=== PATIENT | male | born 1935 | race Caucasian/White ===

== ENCOUNTER 2016-11-25 07:40 | Inpatient (IN) | payer MEDICARE ==
[~2016-11-25] VITALS: Ht 177.8 cm; Wt 70.3 kg
[~2016-11-25 07:40] MED LIST: ALBU1.25 NEB; CALC300T5 PO; CEFTRIAXONE 1GM IVPB FOR OMNI 50 ML IV PRN; CHOL10003 PO; FENTANYL PF 100 MCG/2 ML VIAL. IV PRN; FINA5TAB PO; FLUT1DIS IH; GUAI600T38 PO; HYDR-2762 PO; IV RINGERS,LACTATED 1000ML 1,000 ML IV SCH; LIDOCAINE 1% 1 ML SYRINGE. ID PRN; LOVA10TA PO; OMEG1CAP50 PO; OMEG1CAP6 PO; ONDANSETRON PF 4 MG/2 ML VIAL. IV PRN; PRAV40TA2 PO; PROAIR HFA8.5 GM INH; PROCHLORPERAZINE 10 MG/2 ML VIAL. IV PRN; RANI150T6 PO; SILO8CAP PO; VALIUM10 MG PO
[2016-11-25 08:38] LABS: BILIRUBIN,URINE NEGATIVE (NEG); GLUCOSE,URINE NEGATIVE (NEG); NITRITE,URINE NEGATIVE (NEG); PH,URINE 6.5; PROTEIN,URINE 30 mg/dL (NEG-TRACE); UROBILINOGEN,URINE 0.2 mg/dL (0.2 mg/dL)
[2016-11-25 08:43] LABS: BASO # 0.1 x10^3/uL (0.0-0.2); BASO % 1 % (0-3); EOS % 3 % (0-3); HEMATOCRIT 34.4 % (39.0-53.0); HEMOGLOBIN 11.1 g/dL (13.0-17.5); LYMPH # 1.2 x10^3/uL (1.0-4.8); LYMPH % 18 % (24-48); MEAN CORPUSCULAR HEMOGLOBIN 30 pg (25-35); MEAN CORPUSCULAR HGB CONC 32 g/dL (31-37); MEAN CORPUSCULAR VOLUME 92 fL (79-100); MONO % 13 % (0-9); NEUT % 66 % (31-73); PLATELET COUNT 175 x10^3/uL (140-400); RED BLOOD COUNT 3.73 x10^6/uL (4.30-5.70); WHITE BLOOD COUNT 6.9 x10^3/uL (4.0-11.0)
[2016-11-25 08:50] LABS: RBC,URINE 20-40 /HPF (0-2)
[2016-11-25 08:51] LABS: BACTERIA,URINE FEW /HPF (0-FEW); SQUAMOUS EPITHELIAL CELL,UR OCC /LPF
[2016-11-25] MEDS ORDERED: PROPOFOL 20 ML IV ONE (08:52)
[2016-11-25] MEDS ORDERED: LIDOCAINE 2% 100 MG/5 ML DISP.SYRIN. ONE (08:52)
[2016-11-25] MEDS ORDERED: ONDANSETRON PF 4 MG/2 ML VIAL. ONE (08:52)
[2016-11-25] MEDS ORDERED: FENTANYL PF 100 MCG/2 ML VIAL. ONE (08:53)
[2016-11-25 08:58] LABS: CALCIUM 8.9 mg/dL (8.5-10.1); CREATININE 1.9 mg/dL (0.7-1.3); GFR 34.5; POTASSIUM 3.9 mmol/L (3.5-5.1)
[2016-11-25 08:59] LABS: INR 1.1 (0.8-1.1); PROTHROMBIN TIME PATIENT 13.8 SEC (11.7-14.0)
[2016-11-25] MEDS ORDERED: EPHEDRINE PF IN SALINE 50 MG/5 ML DISP.SYRIN. IV ONE (09:10)
[2016-11-25] MEDS ORDERED: GLYCOPYRROLATE 1 MG/5 ML VIAL. ONE (09:39)
[2016-11-25] MEDS ORDERED: SEVOFLURANE 31 TO 60 MINUTES. IH ONE (09:54)
[2016-11-25] MEDS ORDERED: MAGNESIUM HYDROXIDE 2,400 MG/30 ML ORAL.SUSP. PO PRN (10:45)
[2016-11-25] MEDS ORDERED: ACETAMINOPHEN 325 MG TABLET. PO PRN (10:45)
[2016-11-25] MEDS ORDERED: NALOXONE 0.4 MG/ML VIAL. IV PRN (10:45)
[2016-11-25] MEDS ORDERED: MAG HYDROX/ALUMINUM HYD/SIMETH 30 ML ORAL.SUSP PO PRN (10:45)
[2016-11-25] MEDS ORDERED: ONDANSETRON PF 4 MG/2 ML VIAL. IV PRN (10:45)
[2016-11-25] MEDS ORDERED: 0.9 % SODIUM CHLORIDE 10 ML DISP.SYRIN. IV PRN (10:45)
[2016-11-25] MEDS ORDERED: DIPHENHYDRAMINE 50 MG/ML VIAL IV PRN (10:45)
[2016-11-25] MEDS ORDERED: NON FORMULARY ITEM (Albuterol Sulfate (Proair Hfa Inhaler) 1 PUFF) INH PRN (11:00)
[2016-11-25] MEDS: FINASTERIDE 5 MG TABLET PO SCH (11:42)
[2016-11-25 12:30] VITALS: BP 133/66
[2016-11-25] MEDS ORDERED: ALBUTEROL SULFATE 2.5 MG/3 ML NEBU. NEB PRN (12:45)
--- NOTE | 2016-11-25 13:04 | OP ---
DATE OF SURGERY: 11/25/2016 PREOPERATIVE DIAGNOSES: Bladder cancer, bilateral hydronephrosis. POSTOPERATIVE DIAGNOSES: Bladder cancer, bilateral hydronephrosis. PROCEDURE: Cystoscopy, multiple bladder biopsies, attempted retrograde pyelograms, fulguration of medium bladder tumor. SURGEON: Rand Malagon D.O. ANESTHESIA: General. ESTIMATED BLOOD LOSS: Less than 100 mL. DRAINS: A 22-Burundian 3-way Calvo catheter to continuous bladder irrigation. INDICATIONS AND JUDGMENT: This is a 80-year-old male that recently was found to have bladder cancer involving the anterior bladder wall near the symphysis pubis. It is high grade that felt to be noninvasive. Therefore, he was placed on BCG bladder treatments. He had been doing very well, but a recent CT scan revealed bilateral hydronephrosis and a very thickened bladder wall. Therefore, it was felt that he should undergo cystoscopy, bladder biopsies and placed bilateral ureteral stents since this bilateral hydronephrosis was a new finding. This was explained to the patient, he appeared to understand and was agreeable. OPERATION PROCEDURE: The patient was preloaded with IV antibiotics. He was taken to the operating room and placed on the operating room table in supine position, given a general anesthetic and then placed in a dorsolithotomy position using Anthony stirrups, since we do not have a cystoscopy table. A C-arm was moved into position. Rigid cystoscopy was performed. The urethra was normal course and caliber. The patient has a 25 g prostate with visual obstruction. The scope was advanced into the bladder. The bladder was carefully examined with a 30 degree and 70 degree lens. The bladder looked much different today. He now had significant bladder tumor involvement of the trigone and the floor of the bladder and I was not able to identify the ureteral orifices on either side. There appeared to be involved in the bladder tumor involving the trigone and the floor of the bladder. I then decided to take some bladder biopsies and several bladder biopsies were taken of the tumor in the region of the trigone and one biopsy on the dome of the bladder. I then utilized the resectoscope and a 24-Burundian resectoscope sheath with the rollerball and I fulgurated the bladder tumor in the region of the trigone. I was careful not to fulgurate in the area ____ that the ureteral orifices should be. Hemostasis was obtained. Therefore, the instruments were removed. A well-lubricated 22-Bur[place]ian 3-way Calvo catheter was inserted into the bladder and this was connected to continuous bladder irrigation using normal saline. The patient tolerated the procedure well and was sent to recovery room in satisfactory condition. I am going to talk ____ Interventional Radiology and see if we can establish a percutaneous nephrostomy tube and then hopefully convert that to antegrade stents in the near future. Based on the patient's recent CT scan and the findings today, I think that the patient will eventually need a radical cystectomy with urinary diversion. I would discuss this with the patient. RAND MALAGON DO DR: RIANNA/matthew JOB#: [id number] / [id number]
[2016-11-25] MEDS: IV 1/2 NORMAL SALINE 1,000 ML IV SCH (13:09)
[2016-11-25 14:42] VITALS: BP 141/72
[2016-11-25] MEDS: ALBUTEROL SULFATE 2.5 MG/3 ML NEBU. NEB SCH ×2 (15:16→20:41)
[2016-11-25] MEDS: OXYCODONE/APAP 5/325 TABLET. PO PRN ×2 (16:30→21:21)
[2016-11-25 19:00] VITALS: BP 118/60
[2016-11-25] MEDS: BUDESONIDE 0.5 MG/2 ML NEBU NEB SCH (20:41)
[2016-11-25] MEDS: SENNOSIDES/DOCUSATE 8.6/50MG TABLET. PO SCH (21:16)
[2016-11-25] MEDS: TAMSULOSIN 0.4 MG CAP.ER.24H. PO SCH (21:16)
[2016-11-25 22:47] VITALS: BP 130/62
[2016-11-26] VITALS (13 sets, daily range): BP systolic 107–147; BP diastolic 56–72
[2016-11-26] MEDS: IV 1/2 NORMAL SALINE 1,000 ML IV SCH ×2 (01:21→13:44)
[2016-11-26 05:46] LABS: BASO # 0.1 x10^3/uL (0.0-0.2); BASO % 1 % (0-3); EOS % 2 % (0-3); HEMATOCRIT 33.4 % (39.0-53.0); HEMOGLOBIN 10.8 g/dL (13.0-17.5); LYMPH # 1.3 x10^3/uL (1.0-4.8); LYMPH % 19 % (24-48); MEAN CORPUSCULAR HEMOGLOBIN 30 pg (25-35); MEAN CORPUSCULAR HGB CONC 32 g/dL (31-37); MEAN CORPUSCULAR VOLUME 92 fL (79-100); MONO % 14 % (0-9); NEUT % 65 % (31-73); PLATELET COUNT 152 x10^3/uL (140-400); RED BLOOD COUNT 3.62 x10^6/uL (4.30-5.70); RED CELL DISTRIBUTION WIDTH 12.9 % (11.5-14.5); WHITE BLOOD COUNT 7.1 x10^3/uL (4.0-11.0)
[2016-11-26 06:00] LABS: CALCIUM 8.4 mg/dL (8.5-10.1); CREATININE 1.7 mg/dL (0.7-1.3); GFR 39.2; POTASSIUM 3.9 mmol/L (3.5-5.1)
[2016-11-26] MEDS: ALBUTEROL SULFATE 2.5 MG/3 ML NEBU. NEB SCH ×4 (07:31→20:18)
[2016-11-26] MEDS: BUDESONIDE 0.5 MG/2 ML NEBU NEB SCH ×2 (07:31→20:18)
[2016-11-26] MEDS: CEFTRIAXONE SODIUM 1 GM in IV NORMAL SALINE 50ML 50 ML IV SCH (08:12)
[2016-11-26] MEDS: OXYCODONE/APAP 5/325 TABLET. PO PRN ×2 (08:13→22:02)
[2016-11-26] MEDS: SENNOSIDES/DOCUSATE 8.6/50MG TABLET. PO SCH ×2 (09:00→22:03)
[2016-11-26] MEDS: MORPHINE SULFATE 2 MG/ML DISP.SYRIN. IV PRN ×3 (10:58→20:05)
--- NOTE | 2016-11-26 14:02 | PDOC ---
Provider Note Provider Note POD#1 Bilateral Hydronephrosis, IR to place bilateral nephrostomy tubes later today Urine color improving Impression: Bladder Cancer Bilateral Hydronephrosis Plan: bilateral nephrostomy tubes today advance diet after above. RAND MALAGON DO Nov 26, 2016 14:02
--- NOTE | 2016-11-26 14:14 | PATHOLOGY ---
PATHOLOGY REPORT * * * * * * * * FINAL DIAGNOSIS: Bladder biopsies, bladder tumor: - PAPILLARY HIGH-GRADE UROTHELIAL CARCINOMA. SEE COMMENT. COMMENT: Sections of the bladder tumor biopsy reveal a papillary high-grade urothelial carcinoma. There is no evidence of invasive carcinoma. There is focal chronic inflammation within the lamina propria. There is a small amount of smooth muscle present in one of the biopsies. The case is also examined by Dr. Sonu Ramirez, who concurs with the diagnosis. (JPM:; d/t: 11/26/16) REPORT ELECTRONICALLY SIGNED BY: Itz Mast M.D. DATE/TIME: 11/26/2016 14:14 * * * * * * * * GROSS PATHOLOGY: The specimen is received in formalin, labeled "Jama Vazquez and bladder biopsies." Received is a 1.2 x 0.5 x 0.2 cm aggregate of blood-tinged, pink-castelan, and rubbery soft tissue fragments. The specimen is entirely submitted in cassette A1. (TTL; 11/25/2016) INITIAL CPT CODE(S): A; 47578 Professional services performed [place] [facility] [address] Technical services performed by [facility] at [address] [place] [address], [place] [address]. SPECIMEN(S) RECEIVED: A.Bladder biopsy CLINICAL HISTORY: Bilateral hydronephrosis, BPH, bladder cancer PATIENT: JAMA VAZQUEZ /AGE: 312/23/1935 (Age: 80) PATIENT #: [id number] ALT CASE #: SPECIMEN COLLECTION DATE: 11/25/2016 SPECIMEN RECEIVED DATE: 11/25/2016 [facility] - [id number] [place] [address] - PHONE: [phone] * * * END OF REPORT * * *
[2016-11-26] MEDS ORDERED: IOHEXOL 300 MG/ML 100ML VIAL. ONE (15:07)
[2016-11-26] MEDS ORDERED: LIDOCAINE 1% / SOD BICARB 8.4% 20 ML VIAL. IJ ONE ×2 (15:08→16:00)
[2016-11-26] MEDS ORDERED: FENTANYL PF 100 MCG/2 ML VIAL. ONE (15:32)
[2016-11-26] MEDS ORDERED: MIDAZOLAM HCL 2 MG/2 ML VIAL. ONE (15:32)
[2016-11-26] MEDS ORDERED: IOHEXOL 300 MG/ML 100ML VIAL. IART ONE (15:45)
[2016-11-26] MEDS ORDERED: FENTANYL PF 100 MCG/2 ML VIAL. IV ONE (16:00)
[2016-11-26] MEDS ORDERED: CONTRAST GIVEN MC PRN (16:00)
[2016-11-26] MEDS ORDERED: MIDAZOLAM HCL 2 MG/2 ML VIAL. IV ONE (16:00)
--- NOTE | 2016-11-26 16:29 | PDOC ---
MODERATE SEDATION ASSESSMENT RISKS/ALTERNATIVES Risks/Alternatives Risks and alternatives of this type of sedation and procedure discussed with: RISK/ALTERNATIVES: Patient H & P ON CHART H & P H & P on chart and reviewed for co-morbid conditions and appropriate labs. H&P ON CHART: Yes STATUS PREG STATUS ASSESSED: Yes MEDS/ALLERGIES REVIEWED Meds/Allergies Reviewed Medications and Allergies including time and route of recently administered narcotics and sedatives. MEDS/ALLERGIES REVIEWED: Yes ASA RATING ASA RATING: II AIRWAY ASSESSMENT Airway Assessment Airway patency, oral function limitations, presence of caps, crowns, dentures, partials, and ability to extend neck assessed. AIRWAY ASSESSMENT: Yes MALLAMPATI SCORE MALLAMPATI SCORE: II PRE-SEDATION ASSESSMENT PRE-SEDATION ASSESSMENT: Yes UMER ALEJO MD Nov 26, 2016 16:29
--- NOTE | 2016-11-26 16:30 | PDOC ---
BRIEF OPERATIVE NOTE Pre-Op Diagnosis Bladder cancer and bilateral ureteral obstruction Post-Op Diagnosis same Procedure Performed Bilateral US guided percutaneous nephrostomy tubes Surgeon Ashley Anesthesia Type: Conscious Sedation Findings Bilateral hydronephrosis. 10F bilateral tubes Complications No immediate UMER ALEJO MD Nov 26, 2016 16:30
--- NOTE | 2016-11-26 17:05 | RAD ---
Procedure: Ultrasound-guided and fluoroscopic guided percutaneous nephrostomy tubes Clinical Indication: 80-year-old with bladder cancer and bilateral ureteral obstruction Sedation: Conscious sedation was administered for 35 minutes. The patient was monitored by a qualified independent observer throughout the time of sedation. Please refer to the medical record for exact doses of medications utilized to achieve moderate sedation. Antibiotics: Antibiotic was administered intravenously within 1 hour of the procedure start time. Exposure: Kerma-Area Product: 7 Gycm2 Sterility: All elements of maximal sterile barrier technique including the use of a cap, mask, sterile gown, sterile gloves, large sterile sheet, appropriate hand hygiene, and 2% chlorhexidine for cutaneous antisepsis (or acceptable alternative antiseptic per current guidelines) were followed for this procedure. Consent: The procedure was explained in its entirety to the patient or the patients designated consumer sales representative by a member of the treatment team, including a discussion of the risks, benefits and commonly accepted alternatives to the procedure, as well as the expected consequences of no therapy whatsoever. Discussion of the risks included, but was not limited to, those that are most frequent and those that are rare but possibly severe or life-threatening, as well as the possibility of unforeseen complications. Technique and Findings: Following informed consent, the patient was prepped and draped in usual sterile fashion. Ultrasound interrogation of the right kidney revealed hydronephrosis. 1% lidocaine was used to achieve local anesthesia. A hardcopy ultrasound image was recorded as a 21-gauge Chiba needle was advanced into a posterior inferior pole calyx. This needle was exchanged over a wire for an AccuStick sheath. Contrast nephrostogram was performed demonstrating marked hydronephrosis with distal ureteral obstruction. The AccuStick sheath was then exchanged over wire for serial dilators followed x 10 Estonian nephrostomy tube. This tube was sutured into place and placed to bag drainage. Ultrasound interrogation of the left flank revealed left hydronephrosis. 1% lidocaine was used to achieve local anesthesia. Once again under ultrasound guidance, a 21-gauge Chiba needle was used to gain access to posterior inferior pole calyx, and a Hardcopy ultrasound image was recorded. The needle was exchanged over wire for an AccuStick sheath. Contrast nephrostogram was then performed demonstrating hydronephrosis and distal ureteral distraction. The AccuStick sheath was exchanged for serial dilators followed by a 10 Estonian nephrostomy tube. This tube was sutured to the skin and placed to bag drainage. Complications: No immediate Impression: 1. Bilateral percutaneous nephrostograms demonstrating distal ureteral obstruction with marked hydronephrosis. 2. Bilateral nephrostomy tubes as described.
[2016-11-26] MEDS: FINASTERIDE 5 MG TABLET PO SCH (17:15)
[2016-11-26] MEDS: TAMSULOSIN 0.4 MG CAP.ER.24H. PO SCH (22:02)
[2016-11-27] MEDS: OXYCODONE/APAP 5/325 TABLET. PO PRN ×2 (02:19→13:17)
[2016-11-27] MEDS: IV 1/2 NORMAL SALINE 1,000 ML IV SCH ×2 (02:45→17:21)
[2016-11-27 03:14] VITALS: BP 122/68
[2016-11-27] MEDS: ALBUTEROL SULFATE 2.5 MG/3 ML NEBU. NEB SCH ×3 (07:47→15:13)
[2016-11-27] MEDS: BUDESONIDE 0.5 MG/2 ML NEBU NEB SCH (07:47)
[2016-11-27] MEDS: FINASTERIDE 5 MG TABLET PO SCH (07:49)
[2016-11-27] MEDS: SENNOSIDES/DOCUSATE 8.6/50MG TABLET. PO SCH (07:49)
[2016-11-27] MEDS: CEFTRIAXONE SODIUM 1 GM in IV NORMAL SALINE 50ML 50 ML IV SCH (07:51)
[2016-11-27 09:05] VITALS: BP 128/72
[2016-11-27 10:46] VITALS: BP 119/55
[2016-11-27 14:36] VITALS: BP 129/68
--- NOTE | 2016-11-27 17:54 | DISCH ---
DISCHARGE INSTRUCTIONS Condition on Discharge Condition on Discharge: Stable Activity After Discharge Activity Instructions for Disc: Activity as tolerated Bathing Instructions: Shower-keep dressing dry Lifting Instructions after Dis: Do not lift >10 pounds Driving Instructions after Dis: Do not drive today Diet after Discharge Diet after Discharge: Regular Wound Incision Care Other wound/incision instructi: Drain nephrostomy bags as needed Community/Resources/Services Services at Discharge: Home Health Care Services Contacting the DRPrashanth after DC Call your doctor for: Concerns you may have Follow-Up Follow up with: Dr Malagon will call you at home next week RAND MALAGON DO Nov 27, 2016 17:54
--- NOTE | 2016-11-28 02:51 | DS ---
DATE OF DISCHARGE: 11/27/2016 FINAL DIAGNOSES: 1. Bladder cancer. 2. Bilateral hydronephrosis. 3. Renal insufficiency. This is a summary of patient's hospital course. A well-documented history and physical can be found within the body of the chart. Briefly, this is a 80-year-old male with a history of bladder cancer. He had previously undergone resection of bladder tumor on the anterior wall of the bladder just inside the bladder neck. Following that, he was placed on BCG bladder treatments in the office. Recent CT scan was performed, which revealed bilateral hydronephrosis, which was a new finding. His creatinine was also elevated. Therefore, it was felt that the patient should be brought to the hospital to undergo cystoscopy, possible TUR bladder tumor and placement of bilateral ureteral stents. The patient was brought to the hospital on 11/25/2016. He underwent cystoscopy under general anesthesia. This revealed that his bladder cancer had spread throughout the bladder, particularly now on the posterior wall of the bladder and the ureteral orifices appeared to be involved and could not be identified for stent placement. Some biopsies were taken and tumor was fulgurated. The procedure was ____. I then consulted Interventional Radiology to place bilateral percutaneous nephrostomy tubes to relieve the hydronephrosis bilaterally and that was done successfully on 11/26/2016. The following day on 11/27/2016, the patient was doing well. He was tolerating his diet. His urine was clear. His Calvo catheter was discontinued. It was felt the patient could be discharged home. We are making arrangements for home health to help him manage his nephrostomy tubes. I plan to consult Dr. Turcios in Interventional Radiology next week to see if he can place antegrade stents bilaterally through the nephrostomy tracts. Following that, we will proceed with treatment of his bladder cancer. This was explained to the patient. He appeared to understand and was agreeable. His condition upon discharge is satisfactory. He was to resume his home medications. I also placed him on Cipro 500 mg p.o. b.i.d. for 7 days and also hydrocodone 5 as needed 1 or 2 as needed for pain every 6 hours. I told the patient I would call him next week and make arrangements for him to see Interventional Radiology. RAND MALAGON DO DR: Laurence JOB#: [id number] / [id number]
== END 2016-11-27 19:00 | disposition home health service (06) | DRG 657 ==
LOC: SURG 07:40 → 5 NORTH 11:00
PROVIDERS: ADMIT Urology; ATTEND Urology
PROC: 0T5B8ZZ Destruction of Bladder, Via Natural or Artificial Opening Endoscopic (ICD-10-PCS; 2016-11-25)
PROC: 0TBB8ZX Excision of Bladder, Via Natural or Artificial Opening Endoscopic, Diagnostic (ICD-10-PCS; principal; 2016-11-25 09:30)
PROC: 0T1 Urinary System, Bypass (ICD-10-PCS; 2016-11-26)
PROC: 0T1 Urinary System, Bypass (ICD-10-PCS; 2016-11-26)
PROC: BT141ZZ Fluoroscopy of Kidneys, Ureters and Bladder using Low Osmolar Contrast (ICD-10-PCS; 2016-11-26)
DX: C67.9 Malignant neoplasm of bladder, unspecified (principal); N13.1 Hydronephrosis with ureteral stricture, not elsewhere classified; E78.5 Hyperlipidemia, unspecified; J44.9 Chronic obstructive pulmonary disease, unspecified; N13.5 Crossing vessel and stricture of ureter without hydronephrosis; Z85.51 Personal history of malignant neoplasm of bladder; Z88.1 Allergy status to other antibiotic agents; Z88.5 Allergy status to narcotic agent; Z88.8 Allergy status to other drugs, medicaments and biological substances; Z88.6 Allergy status to analgesic agent
CPT/HCPCS: 36415; 50432; 80048; 81001; 85027; 85610; 85730; 87086; 88305; 94250; 94640; A4215; C1729; C1769; C1894; J0690; J0696; J1956; J2250; J2270; J2405; J2704; J3010; J3490; Q9967

== ENCOUNTER 2016-12-09 08:22 | Outpatient (CLI) | payer MEDICARE ==
[2016-12-09] VITALS (8 sets, daily range): BP systolic 119–162; BP diastolic 57–75
[~2016-12-09] VITALS: Ht 177.8 cm; Wt 63.5 kg
[~2016-12-09 08:22] MED LIST changes: -CEFTRIAXONE 1GM IVPB FOR OMNI 50 ML IV PRN; -FENTANYL PF 100 MCG/2 ML VIAL. IV PRN; -IV RINGERS,LACTATED 1000ML 1,000 ML IV SCH; -LIDOCAINE 1% 1 ML SYRINGE. ID PRN; -ONDANSETRON PF 4 MG/2 ML VIAL. IV PRN; -PROCHLORPERAZINE 10 MG/2 ML VIAL. IV PRN
[2016-12-09] MEDS ORDERED: VALIUM10 MG PO (09:12)
[2016-12-09] MEDS ORDERED: CETI10TA22 PO (09:12)
[2016-12-09] MEDS ORDERED: FLUT16SP NS (09:12)
[2016-12-09] MEDS ORDERED: HYDR-2762 PO (09:12)
[2016-12-09] MEDS ORDERED: RANI150T6 PO (09:12)
[2016-12-09] MEDS ORDERED: TRAM50TA PO (09:12)
[2016-12-09] MEDS ORDERED: FAMO1TAB22 PO (09:12)
[2016-12-09 09:19] LABS: BASO % 1 % (0-3); EOS % 4 % (0-3); HEMATOCRIT 34.9 % (39.0-53.0); HEMOGLOBIN 11.2 g/dL (13.0-17.5); LYMPH % 14 % (24-48); MEAN CORPUSCULAR HEMOGLOBIN 29 pg (25-35); MEAN CORPUSCULAR HGB CONC 32 g/dL (31-37); MEAN CORPUSCULAR VOLUME 91 fL (79-100); MONO % 11 % (0-9); NEUT % 70 % (31-73); PLATELET COUNT 217 x10^3/uL (140-400); RED BLOOD COUNT 3.82 x10^6/uL (4.30-5.70); RED CELL DISTRIBUTION WIDTH 13.6 % (11.5-14.5); WHITE BLOOD COUNT 6.9 x10^3/uL (4.0-11.0)
[2016-12-09 09:24] LABS: CALCIUM 9.2 mg/dL (8.5-10.1); CREATININE 1.4 mg/dL (0.7-1.3); POTASSIUM 4.8 mmol/L (3.5-5.1)
[2016-12-09 09:27] LABS: INR 1.1 (0.8-1.1); PROTHROMBIN TIME PATIENT 13.4 SEC (11.7-14.0)
[2016-12-09] MEDS ORDERED: IOHEXOL 300 MG/ML 100ML VIAL. ONE (09:52)
[2016-12-09] MEDS ORDERED: LIDOCAINE 1% / SOD BICARB 8.4% 20 ML VIAL. IJ ONE ×2 (09:53→10:30)
[2016-12-09] MEDS ORDERED: MIDAZOLAM HCL/PF 5 MG/5 ML VIAL ONE (10:00)
[2016-12-09] MEDS ORDERED: FENTANYL PF 250 MCG/5 ML VIAL. ONE (10:00)
[2016-12-09] MEDS ORDERED: FENTANYL PF 250 MCG/5 ML VIAL. IV ONE (10:30)
[2016-12-09] MEDS ORDERED: CONTRAST GIVEN MC PRN (10:30)
[2016-12-09] MEDS ORDERED: MIDAZOLAM HCL/PF 5 MG/5 ML VIAL IV ONE (10:30)
[2016-12-09] MEDS ORDERED: IOHEXOL 300 MG/ML 100ML VIAL. IART ONE (10:30)
[2016-12-09] MEDS ORDERED: MIDAZOLAM HCL 2 MG/2 ML VIAL. ONE (11:54)
[2016-12-09] MEDS ORDERED: FENTANYL PF 100 MCG/2 ML VIAL. ONE (11:54)
[2016-12-09] MEDS ORDERED: FENTANYL PF 100 MCG/2 ML VIAL. IV ONE (12:15)
[2016-12-09] MEDS ORDERED: MIDAZOLAM HCL 2 MG/2 ML VIAL. IV ONE (12:15)
[2016-12-09] MEDS ORDERED: CIPR500T94 PO (13:04)
--- NOTE | 2016-12-09 17:19 | PDOC ---
MODERATE SEDATION ASSESSMENT RISKS/ALTERNATIVES Risks/Alternatives Risks and alternatives of this type of sedation and procedure discussed with: RISK/ALTERNATIVES: Patient H & P ON CHART H & P H & P on chart and reviewed for co-morbid conditions and appropriate labs. H&P ON CHART: Yes STATUS PREG STATUS ASSESSED: N/A MEDS/ALLERGIES REVIEWED Meds/Allergies Reviewed Medications and Allergies including time and route of recently administered narcotics and sedatives. MEDS/ALLERGIES REVIEWED: Yes ASA RATING ASA RATING: III AIRWAY ASSESSMENT Airway Assessment Airway patency, oral function limitations, presence of caps, crowns, dentures, partials, and ability to extend neck assessed. AIRWAY ASSESSMENT: Yes MALLAMPATI SCORE MALLAMPATI SCORE: II PRE-SEDATION ASSESSMENT PRE-SEDATION ASSESSMENT: Yes RUBÉN DEJESUS MD Dec 09, 2016 17:19
--- NOTE | 2016-12-09 17:25 | PDOC1 ---
History and Physical Date of Procedure Date of Admission 12/09/16 Procedure Procedure Image guided internalization of bilateral PCN tubes Indication Indication 80 YO male with bladder cancer and bilateral ureteral obstruction, s/p bilateral PCN tube placement 11/26/16. Conversion to bilateral internal ureteral stents has been requested by Urology. Past Medical History Past Medical History See Nursing Pre Procedure PMH Past Surgical History Past Surgical History See Nursing Pre Procedure PSH Current Medications Current Medications Current Medications Iohexol (Omnipaque 300 Mg/ml) 100 ml STK-MED ONCE .ROUTE ; Start 12/09/16 at 09: 52; Stop 12/09/16 at 09:53; Status DC Lidocaine/Sodium Bicarbonate 20 ml 20 ml STK-MED ONCE IJ ; Start 12/09/16 at 09: 53; Stop 12/09/16 at 09:54; Status DC Heparin Sodium/ Sodium Chloride 500 ml @ As Directed STK-MED ONCE .ROUTE ; Start 12/09/16 at 09:53; Stop 12/09/16 at 09:54; Status DC Levofloxacin/ Dextrose (LEVAQUIN 500mg PREMIX) 100 ml @ As Directed STK-MED ONCE IV ; Start 12/09/16 at 10:00; Stop 12/09/16 at 10:01; Status DC Midazolam HCl (Versed) 5 mg STK-MED ONCE .ROUTE ; Start 12/09/16 at 10:00; Stop 12/09/16 at 10:01; Status DC Fentanyl Citrate (Fentanyl 5ml Vial) 250 mcg STK-MED ONCE .ROUTE ; Start at 10:00; Stop 12/09/16 at 10:01; Status DC Heparin Sodium/ Sodium Chloride 1,000 unit 1X ONCE IART Last administered on 12:13; Start 12/09/16 at 10:30; Stop 12/09/16 at 10:31; Status DC Lidocaine/Sodium Bicarbonate (Buffered Lidocaine 1%) 20 ml 1X ONCE IJ Last administered on 12/09/16 12:14; Start 12/09/16 at 10:30; Stop 12/09/16 at 10:31 ; Status DC Midazolam HCl (Versed) 5 mg 1X ONCE IV Last administered on 12/09/16 12:14; Start 12/09/16 at 10:30; Stop 12/09/16 at 10:31; Status DC Fentanyl Citrate (Fentanyl 5ml Vial) 250 mcg 1X ONCE IV Last administered on 12:15; Start 12/09/16 at 10:30; Stop 12/09/16 at 10:31; Status DC Iohexol (Omnipaque 300 Mg/ml) 100 ml 1X ONCE IART Last administered on 12:13; Start 12/09/16 at 10:30; Stop 12/09/16 at 10:31; Status DC Info 1 each 1 each PRN DAILY PRN MC SEE COMMENTS; Start 12/09/16 at 10:30; Stop 12/09/16 at 14:40; Status DC Levofloxacin/ Dextrose (LEVAQUIN 500mg PREMIX) 100 ml @ 100 mls/hr 1X ONCE IV Last administered on 12/09/16 12:15; Start 12/09/16 at 11:15; Stop 12/09/16 at 12:14; Status DC Midazolam HCl (Versed) 2 mg STK-MED ONCE .ROUTE ; Start 12/09/16 at 11:54; Stop 12/09/16 at 11:55; Status DC Fentanyl Citrate (Fentanyl 2ml Vial) 100 mcg STK-MED ONCE .ROUTE ; Start at 11:54; Stop 12/09/16 at 11:55; Status DC Midazolam HCl (Versed) 2 mg 1X ONCE IV Last administered on 12/09/16 12:15; Start 12/09/16 at 12:15; Stop 12/09/16 at 12:16; Status DC Fentanyl Citrate (Fentanyl 2ml Vial) 100 mcg 1X ONCE IV Last administered on 12:16; Start 12/09/16 at 12:15; Stop 12/09/16 at 12:16; Status DC Active Scripts Active Reported Cipro (Ciprofloxacin Hcl) 500 Mg Tablet 1 Tab PO BID Pepcid Complete Tablet Chew (Famotidine/Ca Carb/Mag Hydrox) 1 Each Tab.chew 1 Each PO DAILY PRN Fluticasone Propionate Nasal [place] (Fluticasone Propionate) 16 Gm [place].susp 2 [place] NS DAILY Zyrtec (Cetirizine Hcl) 10 Mg Tablet 1 Tab PO DAILY Tramadol Hcl 50 Mg Tablet 50 Mg PO DAILY PRN Hydrocodone-Apap 7.5-325 (Hydrocodone Bit/Acetaminophen) 1 Each Tablet 1 Tab PO Q8HRS PRN Zantac (Ranitidine Hcl) 150 Mg Tablet 150 Mg PO DAILY Valium (Diazepam) 10 Mg Tablet 10 Mg PO TID PRN Mucinex (Guaifenesin) 600 Mg Tablet.er 1 Tab PO BID Proscar (Finasteride) 5 Mg Tablet 5 Mg PO DAILY Rapaflo (Silodosin) 8 Mg Capsule 8 Mg PO HS Albuterol Sulfate Neb Soln (Albuterol Sulfate) 1.25 Mg/3 Ml Vial.neb 1.25 Mg NEB PRN PRN Proair Hfa Inhaler (Albuterol Sulfate) 8.5 Gm Hfa.aer.ad 1 Puff INH PRN Q6HRS PRN Advair 100-50 Diskus (Fluticasone/Salmeterol) 1 Each Disk.w.dev 1 Inh IH BID Allergies Allergies: Coded Allergies: aspirin (Verified Allergy, Intermediate, Rash, 11/25/16) azithromycin (Verified Allergy, Intermediate, 11/25/16) STOMACH PAINS carisoprodol (Verified Allergy, Intermediate, Rash, 11/25/16) chlorpheniramine (Verified Allergy, Intermediate, Rash, 11/25/16) cimetidine (Verified Allergy, Intermediate, 11/25/16) STOMACH PAINS codeine (Verified Allergy, Intermediate, 11/25/16) STOMACH PAINS diclofenac (Verified Allergy, Intermediate, 11/25/16) STOMACH PAIN doxycycline (Verified Allergy, Intermediate, Rash, 11/25/16) HIVES erythromycin base (Verified Allergy, Intermediate, 11/25/16) BAD STOMACH PAINS AND JUMPY NERVES glycopyrrolate (Verified Allergy, Intermediate, 11/25/16) STOMACH PAINS ibuprofen (Verified Allergy, Intermediate, 11/25/16) STOMACH PAINS lansoprazole (Verified Allergy, Intermediate, 11/25/16) STOMACH PAINS methocarbamol (Verified Allergy, Intermediate, 11/25/16) DIZZY moxifloxacin (Verified Allergy, Intermediate, Rash, 11/25/16) naproxen (Verified Allergy, Intermediate, 11/25/16) STOMACH PAINS nizatidine (Verified Allergy, Intermediate, 11/25/16) "BAD STOMACH PAINS" omeprazole (Verified Allergy, Intermediate, 11/25/16) STOMACH PAINS phenylpropanolamine (Verified Allergy, Intermediate, Rash, 11/25/16) pseudoephedrine (Verified Allergy, Intermediate, 11/25/16) STOMACH PAINS sodium bicarbonate (Verified Allergy, Intermediate, 11/25/16) STOMACH PAINS sulfamethoxazole (Verified Allergy, Intermediate, Hives, 11/25/16) RASH trimethoprim (Verified Allergy, Intermediate, Hives, 11/25/16) RASH Physical Exam Vital Signs Vital Signs Date Time Temp Pulse Resp B/P Pulse Ox O2 Delivery O2 Flow Rate FiO2 12/09/16 13:45 68 16 96 Room Air 12/09/16 09:15 162/59 12/09/16 08:45 97.5 97.5 Lungs: Clear to auscultation Heart: Regular rate Psych/Mental Status: Mental status NL Other Bilateral PCN drains in place--to DD Assessment Assessment Bladder cancer with bilateral ureteral obstruction , s/p bilateral PCN tube insertion. Problems: Plan Plan Attempted fluoro guided conversion from PCN tubes to internal ureteral stents RUBÉN DEJESUS MD Dec 09, 2016 17:25
--- NOTE | 2016-12-09 17:32 | PDOC ---
Exam Special Delivery Carrier Special Delivery Carrier Karolina Home Care Companion Home Care Companion Bobby Cates Pre-Procedure Diagnosis Pre-Procedure Diagnosis Bladder cancer, with bilateral ureteral obstruction, s/p bilateral PCN tube insertion Post-Procedure Diagnosis Post-Procedure Diagnosis Same Procedure Performed Procedure Performed Successful conversion of left PCN tube to Internal Ureteral Stent, requiring balloon dilation at UVJ. Failed attempt to place right internal ureteral stent----PCN tube replaced---to DD. Type of Anesthesia Type of Anesthesia Local + Mod sedation Estimated Blood Loss EBL: Minimal Specimens Specimans 10 F bilateral PCN tubes removed and discarded Drain/Tubes Drains/Tubes 8F 24cm left internal ureteral stent New 10F right PCN drain to DD Condition of Patient Condition of Patient Stable. No apparent complication. Disposition Disposition Home from [facility] post recovery, if no problems. Scheduled for repeat attempt to place right internal ureteral stent, via new percutaneous nephrostomy tract. Full report to follow. RUBÉN DEJESUS MD Dec 09, 2016 17:32
--- NOTE | 2016-12-10 07:46 | RAD ---
Fluoroscopy guided conversion of left percutaneous nephrostomy drain to internal ureteral stent Right nephrostomy tube replacement-----unsuccessful attempted internal ureteral stent placement Indication: 80-year-old male with invasive bladder cancer and with bilateral distal ureteral obstruction, status post bilateral percutaneous nephrostomy drain insertion on 11/26/2016. Attempted internal position of the percutaneous nephrostomy tubes has been requested by urology. Fluoroscopy time: 55.6 minutes Kerma-area Product: 93 Gycm2 Contrast material: 50 cc Omnipaque 300 Anabiotic: A single dose of Levaquin was given within 1 hour of the procedure start time. Moderate sedation: 109 minutes moderate sedation was provided utilizing a total of 5.5 mg Versed and 300 mcg fentanyl, IV. The patient was appropriately monitored by a qualified independent observer throughout the time of moderate sedation. Procedure: Informed consent was obtained from the patient. He was placed prone on the angiography table. Moderate sedation was provided with IV Versed and fentanyl. 500 mg Levaquin was given IV, prophylactically. Left side: Using aseptic technique, a small amount of Omnipaque 300 was slowly injected through the indwelling 10 Austrian left percutaneous nephrostomy drain. Fluoroscopic images were obtained which revealed satisfactory position of the nephrostomy tube, with resolution of previously present hydronephrosis. Left ureter was opacified to the level of left UVJ, where it tapered to complete obstruction. Under fluoroscopic guidance, the 10 Austrian nephrostomy drain was then exchanged over a Triplett wire for a 7 Austrian 23 cm long sheath which was advanced through left renal collecting system into mid left ureter. A quick cross catheter was then inserted through the 7 Austrian sheath and was successfully directed over a road runner guidewire across the obstructing UVJ into urinary bladder. The quick cross catheter was then removed over a grand slam microguidewire. A 4 mm x 40 mm Cordis savvy PLANT ETIOLOGIST balloon was then advanced through the 7 Austrian sheath over the grand slam wire and was utilized to perform balloon dilatation of left UVJ to a peak pressure of 10 deshaun. The PLANT ETIOLOGIST balloon was then deflated and removed. The quick cross catheter was then reintroduced through the 7 Austrian sheath over the grand slam wire into urinary bladder, and was then removed over a stiff Glidewire. A 3J safety wire was then advanced through the 7 Austrian sheath into distal left ureter, along side the stiff Glidewire. The 7 Austrian sheath was then removed over both guidewires. An 8 Austrian 24 cm long internal ureteral stent was then successfully advanced over the stiff Glidewire under fluoroscopic control. The internal stent was appropriately positioned with its distal tip coiled within urinary bladder and with its proximal tip coiled within left renal pelvis. Satisfactory position of the internal stent was confirmed with completion fluoroscopic spot images. Only minimal hematuria was observed, therefore, the left percutaneous nephrostomy drain was not replaced. A urostomy bag was temporarily placed over the left flank puncture site, until resolution of leakage along the nephrostomy tract. Right side: Using aseptic technique, small amount of Omnipaque 300 was slowly injected through the indwelling 10 Austrian right percutaneous nephrostomy drain. Fluoroscopic spot images were obtained, which revealed persistent moderate right caliectasis. Proximal right ureter appeared a tortuous and narrowed. Distal right ureter tapered to complete obstruction at the level of UVJ. Under fluoroscopic guidance, the 10 Austrian right nephrostomy drain was exchanged over a Triplett wire for a 6 Austrian Malcolm 2 sheath, which was positioned with its tip at UPJ. Subsequently, despite multiple attempts with multiple catheters and guidewires, the tortuous, narrowed proximal right ureter cannot be successfully crossed. Therefore, antegrade internal ureteral stent insertion could not be performed. The 6 Austrian Malcolm 2 sheath was then exchanged over a 3J guidewire for a new 10 Austrian right percutaneous nephrostomy drain, which was successfully positioned with its tip coiled within right renal pelvis. Satisfactory position of the new nephrostomy tube was confirmed with contrast injection and fluoroscopic spot images. The new nephrostomy tube was connected to gravity drainage, and was secured at the skin exit site utilizing suture and sterile dressing. Patient tolerated the procedures well without apparent complication. Impression: 1. Successful, uneventful fluoroscopy guided replacement of indwelling 10 Austrian left percutaneous nephrostomy drain with an 8 Austrian 24 cm left internal ureteral stent, as described. 2. Despite multiple attempts with multiple guidewires and catheters, proximal right ureteral tortuosity and narrowing could not be successfully crossed. Right internal ureteral stent could not be inserted. Right percutaneous nephrostomy drain replacement was successfully performed. 3. Following discussion with referring urologist, the patient has been rescheduled in 2 weeks for repeat attempt to place a right internal ureteral stent, following establishment of a new mid region right percutaneous nephrostomy access.
== END 2016-12-09 14:15 | disposition home or self-care (01) ==
LOC: INTRAD 08:22
PROVIDERS: ATTEND Urology
DX: N13.5 Crossing vessel and stricture of ureter without hydronephrosis (principal); E78.00 Pure hypercholesterolemia, unspecified; K21.9 Gastro-esophageal reflux disease without esophagitis; M19.90 Unspecified osteoarthritis, unspecified site; J44.9 Chronic obstructive pulmonary disease, unspecified; Z98.41 Cataract extraction status, right eye; Z98.42 Cataract extraction status, left eye
CPT/HCPCS: 36415; 50435; 50693; 80048; 85027; 85610; A4215; C1713; C1725; C1729; C1769; C1892; C1894; J1956; J2250; J3010; Q9967

== ENCOUNTER 2016-12-23 07:09 | Outpatient (CLI) | payer MEDICARE ==
[~2016-12-23] VITALS: Ht 162.6 cm; Wt 63.5 kg
[2016-12-23] VITALS (7 sets, daily range): BP systolic 107–148; BP diastolic 49–76
[~2016-12-23 07:09] MED LIST changes: +CETI10TA22 PO; +CIPR500T94 PO; +FAMO1TAB22 PO; +FLUT16SP NS; +TRAM50TA PO
[2016-12-23] MEDS ORDERED: FENTANYL PF 250 MCG/5 ML VIAL. ONE (07:51)
[2016-12-23] MEDS ORDERED: MIDAZOLAM HCL/PF 5 MG/5 ML VIAL ONE (07:51)
[2016-12-23 08:11] LABS: BASO % 1 % (0-3); EOS % 5 % (0-3); HEMATOCRIT 32.4 % (39.0-53.0); HEMOGLOBIN 10.3 g/dL (13.0-17.5); LYMPH # 0.8 x10^3/uL (1.0-4.8); LYMPH % 12 % (24-48); MEAN CORPUSCULAR HEMOGLOBIN 29 pg (25-35); MEAN CORPUSCULAR HGB CONC 32 g/dL (31-37); MEAN CORPUSCULAR VOLUME 92 fL (79-100); MONO % 12 % (0-9); NEUT % 71 % (31-73); PLATELET COUNT 214 x10^3/uL (140-400); RED BLOOD COUNT 3.54 x10^6/uL (4.30-5.70); RED CELL DISTRIBUTION WIDTH 13.6 % (11.5-14.5); WHITE BLOOD COUNT 6.7 x10^3/uL (4.0-11.0)
[2016-12-23 08:15] LABS: CALCIUM 9.3 mg/dL (8.5-10.1); CREATININE 1.3 mg/dL (0.7-1.3); GFR 53.3; POTASSIUM 4.2 mmol/L (3.5-5.1)
[2016-12-23] MEDS ORDERED: MIDAZOLAM HCL/PF 5 MG/5 ML VIAL IV ONE (08:15)
[2016-12-23] MEDS ORDERED: IOHEXOL 300 MG/ML 100ML VIAL. IART ONE (08:15)
[2016-12-23] MEDS ORDERED: LIDOCAINE 1% / SOD BICARB 8.4% 20 ML VIAL. IJ ONE (08:15)
[2016-12-23] MEDS ORDERED: CIPROFLOXACIN 400MG PREMIX 200 ML IV ONE (08:15)
[2016-12-23] MEDS ORDERED: FENTANYL PF 250 MCG/5 ML VIAL. IV ONE (08:15)
[2016-12-23 08:21] LABS: INR 1.1 (0.8-1.1); PROTHROMBIN TIME PATIENT 13.6 SEC (11.7-14.0)
--- NOTE | 2016-12-23 10:33 | PDOC ---
MODERATE SEDATION ASSESSMENT RISKS/ALTERNATIVES Risks/Alternatives Risks and alternatives of this type of sedation and procedure discussed with: RISK/ALTERNATIVES: Patient H & P ON CHART H & P H & P on chart and reviewed for co-morbid conditions and appropriate labs. H&P ON CHART: Yes STATUS PREG STATUS ASSESSED: N/A MEDS/ALLERGIES REVIEWED Meds/Allergies Reviewed Medications and Allergies including time and route of recently administered narcotics and sedatives. MEDS/ALLERGIES REVIEWED: Yes ASA RATING ASA RATING: III AIRWAY ASSESSMENT Airway Assessment Airway patency, oral function limitations, presence of caps, crowns, dentures, partials, and ability to extend neck assessed. AIRWAY ASSESSMENT: Yes MALLAMPATI SCORE MALLAMPATI SCORE: II PRE-SEDATION ASSESSMENT PRE-SEDATION ASSESSMENT: Yes RUBÉN DEJESUS MD Dec 23, 2016 10:33
--- NOTE | 2016-12-23 10:42 | PDOC1 ---
History and Physical Date of Procedure Date of Admission 12/23/16 Procedure Procedure Conversion from right PCN drain to internal ureteral stent---new percutaneous access---balloon dilatation of proximal right ureteral stricture + right UVJ stricture. Indication Indication 81 YO male with invasive bladder cancer, with bilateral ureteral obstruction. He has left internal ureteral stent in place. He has right PCN drain in place. Conversion from PCN to IUS has been requested. Past Medical History Past Medical History See Nursing Pre procedure PMH Past Surgical History Past Surgical History See Nursing Pre procedure PSH Current Medications Current Medications Current Medications Levofloxacin/ Dextrose (LEVAQUIN 500mg PREMIX) 0 ml @ As Directed STK-MED ONCE IV ; Start 12/23/16 at 07:51; Stop 12/23/16 at 07:52; Status DC Midazolam HCl (Versed) 5 mg STK-MED ONCE .ROUTE ; Start 12/23/16 at 07:51; Stop 12/23/16 at 07:52; Status DC Fentanyl Citrate (Fentanyl 5ml Vial) 250 mcg STK-MED ONCE .ROUTE ; Start at 07:51; Stop 12/23/16 at 07:52; Status DC Heparin Sodium/ Sodium Chloride 1,000 unit 1X ONCE IART Last administered on 10:20; Start 12/23/16 at 08:15; Stop 12/23/16 at 08:16; Status DC Lidocaine/Sodium Bicarbonate (Buffered Lidocaine 1%) 20 ml 1X ONCE IJ Last administered on 12/23/16 10:23; Start 12/23/16 at 08:15; Stop 12/23/16 at 08:16 ; Status DC Midazolam HCl (Versed) 3 mg 1X ONCE IV Last administered on 12/23/16 10:21; Start 12/23/16 at 08:15; Stop 12/23/16 at 08:16; Status DC Fentanyl Citrate (Fentanyl 5ml Vial) 150 mcg 1X ONCE IV Last administered on 10:21; Start 12/23/16 at 08:15; Stop 12/23/16 at 08:16; Status DC Iohexol 100 ml 100 ml 1X ONCE IART Last administered on 12/23/16 10:21; Start 12/23/16 at 08:15; Stop 12/23/16 at 08:16; Status DC Ciprofloxacin Lactate (Cipro 400mg Premix) 200 ml @ 200 mls/hr 1X ONCE IV Last administered on 12/23/16t 10:24; Start 12/23/16 at 08:15; Stop 12/23/16 at 09:14; Status DC Active Scripts Active Reported Cipro (Ciprofloxacin Hcl) 500 Mg Tablet 1 Tab PO BID Pepcid Complete Tablet Chew (Famotidine/Ca Carb/Mag Hydrox) 1 Each Tab.chew 1 Each PO DAILY PRN Fluticasone Propionate Nasal [place] (Fluticasone Propionate) 16 Gm [place].susp 2 [place] NS DAILY Zyrtec (Cetirizine Hcl) 10 Mg Tablet 1 Tab PO DAILY Tramadol Hcl 50 Mg Tablet 50 Mg PO DAILY PRN Hydrocodone-Apap 7.5-325 (Hydrocodone Bit/Acetaminophen) 1 Each Tablet 1 Tab PO Q8HRS PRN Zantac (Ranitidine Hcl) 150 Mg Tablet 150 Mg PO DAILY Valium (Diazepam) 10 Mg Tablet 10 Mg PO TID PRN Mucinex (Guaifenesin) 600 Mg Tablet.er 1 Tab PO BID Proscar (Finasteride) 5 Mg Tablet 5 Mg PO DAILY Rapaflo (Silodosin) 8 Mg Capsule 8 Mg PO HS Albuterol Sulfate Neb Soln (Albuterol Sulfate) 1.25 Mg/3 Ml Vial.neb 1.25 Mg NEB PRN PRN Proair Hfa Inhaler (Albuterol Sulfate) 8.5 Gm Hfa.aer.ad 1 Puff INH PRN Q6HRS PRN Advair 100-50 Diskus (Fluticasone/Salmeterol) 1 Each Disk.w.dev 1 Inh IH BID Allergies Allergies: Coded Allergies: aspirin (Verified Allergy, Intermediate, Rash, 11/25/16) azithromycin (Verified Allergy, Intermediate, 11/25/16) STOMACH PAINS carisoprodol (Verified Allergy, Intermediate, Rash, 11/25/16) chlorpheniramine (Verified Allergy, Intermediate, Rash, 11/25/16) cimetidine (Verified Allergy, Intermediate, 11/25/16) STOMACH PAINS codeine (Verified Allergy, Intermediate, 11/25/16) STOMACH PAINS diclofenac (Verified Allergy, Intermediate, 11/25/16) STOMACH PAIN doxycycline (Verified Allergy, Intermediate, Rash, 11/25/16) HIVES erythromycin base (Verified Allergy, Intermediate, 11/25/16) BAD STOMACH PAINS AND JUMPY NERVES glycopyrrolate (Verified Allergy, Intermediate, 11/25/16) STOMACH PAINS ibuprofen (Verified Allergy, Intermediate, 11/25/16) STOMACH PAINS lansoprazole (Verified Allergy, Intermediate, 11/25/16) STOMACH PAINS methocarbamol (Verified Allergy, Intermediate, 11/25/16) DIZZY moxifloxacin (Verified Allergy, Intermediate, Rash, 11/25/16) naproxen (Verified Allergy, Intermediate, 11/25/16) STOMACH PAINS nizatidine (Verified Allergy, Intermediate, 11/25/16) "BAD STOMACH PAINS" omeprazole (Verified Allergy, Intermediate, 11/25/16) STOMACH PAINS phenylpropanolamine (Verified Allergy, Intermediate, Rash, 11/25/16) pseudoephedrine (Verified Allergy, Intermediate, 11/25/16) STOMACH PAINS sodium bicarbonate (Verified Allergy, Intermediate, 11/25/16) STOMACH PAINS sulfamethoxazole (Verified Allergy, Intermediate, Hives, 11/25/16) RASH trimethoprim (Verified Allergy, Intermediate, Hives, 11/25/16) RASH Physical Exam Vital Signs Vital Signs Date Time Temp Pulse Resp B/P Pulse Ox O2 Delivery O2 Flow Rate FiO2 12/23/16 10:21 16 98 Room Air 12/23/16 10:18 79 12/23/16 07:52 98.3 119/57 98.3 Lungs: Clear to auscultation Heart: Regular rate Psych/Mental Status: Mental status NL Other Right PCN tube in place Diagnostic Data/Imaging Images Prior [facility] IR images from 11/26/16 and 12/09/16 reviewed Assessment Assessment 81 YO male with invasive bladder cancer---has left IUS and right PCN drain. Problems: Plan Plan Attempted conversion from right PCN drain to Internal Ureteral Stent via new mid region percutaneous access. RUBÉN DEJESUS MD Dec 23, 2016 10:42
--- NOTE | 2016-12-23 10:52 | PDOC ---
Exam Undercover Cop Undercover Cop Karolina Chemical Engineering Teacher Chemical Engineering Teacher B Cates Pre-Procedure Diagnosis Pre-Procedure Diagnosis Invasive bladder with bilateral ureteral obstruction Left IUS in place. Right lower pole PCN drain in place----unsuccessful attempt to convert to IUS . Post-Procedure Diagnosis Post-Procedure Diagnosis Same. Successful conversion from right PCN drain to IUS. Procedure Performed Procedure Performed Fluoro guided placement of right IUS---new mid region percutaneous access--- balloon dilatation ureteral strictures x 2. Removal right PCN drain. Type of Anesthesia Type of Anesthesia Local + Mod sedation Estimated Blood Loss EBL: Minimal Specimens Specimans 10F right PCN drain removed and discarded Drain/Tubes Drains/Tubes New 8F 24cm right internal ureteral stent Condition of Patient Condition of Patient Stable. No apparent complication. Disposition Disposition Home from [facility] post recovery, if no problems. F/u with Dr Law and Dr Vásquez. Rx Cipro 500 mg BID x 5D. Full report to follow. RUBÉN DEJESUS MD Dec 23, 2016 10:52
--- NOTE | 2016-12-24 08:19 | RAD ---
Fluoroscopy guided insertion of right antegrade internal ureteral stent, via new mid region percutaneous access. Balloon dilatation of proximal right ureter and right ureterovesical junction Removal of indwelling left lower pole percutaneous nephrostomy drain Indication: 81-year-old male with invasive bladder cancer. Bilateral lower pole percutaneous nephrostomy drains were inserted on 11/26/2016. The left nephrostomy tube was successfully converted to an internal ureteral stent on 12/09/2016. However, attempted internalization of the right nephrostomy tube could not be successfully performed via the lower pole percutaneous nephrostomy tract. The patient has returned for repeat attempted right internal ureteral stent insertion, via new right mid region percutaneous access. Fluoroscopy time: 31.2 minutes. A total of 8 fluoroscopic spot images were recorded. Kerma-area Product: 63 Gycm2 Contrast material: 40 cc Omnipaque 300 Anesthesia: 77 minutes moderate sedation was provided utilizing a total of 4 mg Versed and 225 mcg fentanyl, IV. The patient was appropriately monitored by a qualified independent observer throughout the time of moderate sedation. Consent: The procedure was explained in its entirety to the patient and/or the patient's designated freight representative by a member of the treatment team. This included a discussion of risks and benefits and commonly accepted alternatives to the procedure, as well as expected consequences of no treatment at all. Discussion of risks included, but was not limited to, those that are most frequent and those that are rare, but possibly severe or life-threatening, as well as the possibility of unforeseen complications. Sterility: All elements of maximal sterile barrier technique were utilized, including cap, mask, sterile gown, sterile gloves, large sterile sheet, appropriate hand hygiene, and 2% chlorhexidine for cutaneous antisepsis. Antibiotic: A single dose of Cipro was given within 1 hour of the procedure start time. Cipro was considered superior to cephalosporin for this urological procedure. Procedure: Informed consent was obtained from the patient. He was placed prone on the angiography table. Right flank was prepped and draped in the usual sterile fashion, utilizing all elements of maximal sterile barrier technique, as described above. Moderate sedation was provided with IV Versed and fentanyl. 400 mg Cipro was given IV, prophylactically. Using aseptic technique, a small volume of Omnipaque 300 was slowly injected through the patient's indwelling 10 Moroccan right lower pole percutaneous nephrostomy drain, resulting in contrast opacification of right renal collecting system. Subsequently, utilizing aseptic technique, local anesthesia, and direct fluoroscopic guidance, a 19-gauge needle was successfully introduced into a posterior mid region right renal calyx. The 19-gauge needle was removed over an Amplatz wire. The percutaneous tract was dilated and a 7 Moroccan sheath was easily introduced, and was successfully advanced into proximal right ureter. The sheath was positioned with its radiopaque tip immediately above the tortuous and irregularly narrowed proximal ureteral segment which could not be successfully crossed during the previous attempted internal ureteral stent placement on 12/09/2016. A 4 Moroccan angled glide catheter was then advanced through the 7 Moroccan sheath. A 2.8 Moroccan microcatheter was then coaxially inserted through the angle glide catheter. The microcatheter was successfully directed over a Terumo GT microguidewire through the narrowed, tortuous proximal right ureteral segment into distal right ureter just above the UVJ. The microcatheter was then removed over a [place] Plus microguidewire. The 4 Moroccan angled glide catheter was then advanced over the [place] Plus wire into distal right ureter. The [place] plus wire was then removed. A 0.035 inch Roadrunner wire was advanced through the angle glide catheter and was, with resistance, directed across the narrowed right UVJ into urinary bladder. The 4 Moroccan angled glide catheter was exchanged over the Roadrunner wire for a 0.035 inch quick cross catheter, which was successfully directed through UVJ and was coiled within urinary bladder. The quick cross catheter was then removed over a grand slam microguidewire, coiled within urinary bladder. A 4 mm x 40 mm Cordis savvy VOCATIONAL AIDE balloon was then advanced over through the 7 Moroccan sheath over the grand slam wire, and was utilized to perform balloon dilatation of right UVJ to a peak pressure of 10 deshaun, for a total of 3 minutes. The 4 mm VOCATIONAL AIDE balloon was then withdrawn over the grand slam wire and was utilized to perform balloon dilatation of the irregularly narrowed proximal right ureteral segment, to a peak pressure of 6 deshaun for 3 minutes. The savvy balloon was then removed. A 0.035 inch quick cross catheter was reintroduced through the 7 Moroccan sheath over the grand slam wire into urinary bladder. The quick cross catheter was then removed over a stiff Glidewire. The 7 Moroccan sheath was then exchanged over the stiff Glidewire for an 8 Moroccan 24 cm long internal ureteral stent, which was easily advanced under fluoroscopic control. Distal tip of the internal stent was coiled within urinary bladder. Proximal end of the internal stent was partially coiled within inferior aspect of right renal pelvis. A sterile dressing was placed over the mid region nephrostomy puncture site. Right renal pelvis was then gently lavaged with heparinized saline through the previously placed 10 Moroccan lower pole percutaneous nephrostomy drain. This revealed only minimal post procedure hematuria. Therefore, the 10 Moroccan nephrostomy tube was uneventfully removed under fluoroscopic guidance. A urostomy drain was temporarily placed over the nephrostomy removal site. Patient tolerated the procedures well without apparent complication. Impression: 1. Successful, uneventful antegrade insertion of an 8 Moroccan 24 cm right internal ureteral stent, via new right mid region percutaneous access, following balloon dilatation of right UVJ and proximal right ureter, as described. 2. Only minimal post procedure hematuria. Therefore, the indwelling 10 Moroccan right lower pole percutaneous nephrostomy drain was uneventfully removed.
== END 2016-12-23 13:00 | disposition home or self-care (01) ==
LOC: INTRAD 07:09
PROVIDERS: ATTEND Radiology Vascular & Interventional Radiology
DX: C67.9 Malignant neoplasm of bladder, unspecified (principal); J44.9 Chronic obstructive pulmonary disease, unspecified; K21.9 Gastro-esophageal reflux disease without esophagitis; E78.00 Pure hypercholesterolemia, unspecified; M19.90 Unspecified osteoarthritis, unspecified site; Z87.39 Personal history of other diseases of the musculoskeletal system and connective tissue; Z98.41 Cataract extraction status, right eye; Z98.42 Cataract extraction status, left eye
CPT/HCPCS: 36415; 50389; 50694; 50706; 80048; 85027; 85610; C1713; C1725; C1769; C1887; C1892; C1894; J0744; J2250; J3010; Q9967; 50431

== ENCOUNTER → 2016-12-25 | Outpatient (CLI) | payer MEDICARE ==
[2016-12-23 12:40] VITALS: BP 107/49
--- NOTE | 2016-12-25 13:03 | RAD ---
EXAM: Dual modality PET/CT. HISTORY: Bladder cancer staging. TECHNIQUE: PET images were obtained from the skull base to the proximal thighs approximately 60 minutes following the intravenous administration of 12.5 millicuries F-18 fluorodeoxyglucose (FDG). CT images were obtained for attenuation correction purposes. The blood glucose prior to tracer administration was 93 mg/dL. One or more of the following individualized dose reduction techniques were utilized for this examination: 1. Automated exposure control. 2. Adjustment of the mA and/or kV according to patient size. 3. Use of iterative reconstruction technique. COMPARISON: None. FINDINGS: There is expected tracer activity within a dilated renal collecting system. There are also areas of relative increased bowel activity which are likely physiologic. This includes activity within the distal gastric antrum and pylorus, and loops of small bowel within the left mid abdomen and right lower quadrant. There is a small focus of increased tracer activity with maximum SUV of 4.2 along the lu of the right adrenal gland. A discrete nodule is seen within this location. There is also nonspecific activity within a right hilar lymph node with an SUV of 2.7. There is increased activity within right intercostal, subscapular and posterior paraspinal muscles, the distribution of which favors a physiologic etiology. There is physiologic activity within the vocal cords. The CT portion of the exam demonstrates bilateral nephroureteral stents in expected position. There is moderate to severe bilateral hydronephrosis despite stent placement. There is bladder wall thickening with a bladder base mass, a component of which may be due to nodular enlargement of the prostate. This is difficult to assess given streak artifact from the aforementioned stents. No hepatic lesion is seen. There is suspected sludge within the gallbladder. The pancreas, spleen and adrenal glands are unremarkable. There is a small amount of abdominal ascites and there is mesenteric stranding. There is moderate colonic stool. There is no obstruction. There is a moderate hiatal hernia. There is no infiltrate, effusion or pneumothorax. There are few calcified granulomas. The heart is normal in size. There is coronary artery and aortic atherosclerosis. There is calcified plaque within the carotid bifurcations. The brain is grossly unremarkable. There are degenerative changes throughout the spine. There are multiple small sclerotic lesions within the vertebral column and the bilateral ribs, possibly bone islands. There are pars defects with associated anterolisthesis at the lumbosacral junction. IMPRESSION: 1. Radiotracer activity within a dilated renal collecting system. This limits evaluation for a urothelial lesion. There is persistent moderate to severe hydronephrosis status post nephroureteral stent placement. There is bladder wall thickening which may be due to a component of chronic outlet obstruction given the presence of prostamegaly. There is also masslike density along the inferior bladder which may be due to nodular enlargement of the prostate. Correlate with cystography or a CT urogram. 2. Nonspecific focus of increased radiotracer activity with an SUV of 4.2 along the lu of the right adrenal gland. No clear adrenal nodule or adjacent lymphadenopathy is seen. However, evaluation is limited due to the absence of intravenous contrast. Correlate with a contrast-enhanced CT. 3. Mild abdominal ascites and mesenteric stranding. 4. Several small chronic foci within the vertebral column and ribs, the appearance of which favors bone islands. Bone scintigraphy may be useful if there is concern for osseous metastatic disease.
== END | disposition home or self-care (01) ==
LOC: PETSC 10:16
PROVIDERS: ATTEND Family Medicine
DX: C67.9 Malignant neoplasm of bladder, unspecified (principal)
CPT/HCPCS: 78815; A9552

== ENCOUNTER → 2017-01-12 | Outpatient (CLI) | payer MEDICARE ==
[2016-12-23 12:40] VITALS: BP 107/49
[~2017-01-12] MED LIST changes: +IOHEXOL 240 MG/ML 50ML VIAL. PO ONE; +IOHEXOL 300 MG/ML 75 ML VIAL IV ONE
--- NOTE | 2017-01-12 12:23 | RAD ---
Indication bladder malignancy. Whole body static images were obtained. 26 mCi of technetium labeled MDP was administered. No prior bone scan is available. There is slightly increased uptake in the wrists which is almost certainly degenerative. Slightly increased activity in a single midthoracic vertebral body segment is also likely degenerative. Minimal increased uptake is seen in an anterior lower left rib which is nonspecific. Widespread osseous metastatic disease is not seen on this study. Normal activity is seen in the kidneys and urinary bladder. IMPRESSION: Several areas of slightly increased uptake, likely degenerative and incidental. Widespread osseous metastatic disease is not seen. Isolated uptake in a single anterior left rib is nonspecific
--- NOTE | 2017-01-12 15:08 | RAD ---
CT of the abdomen and pelvis with and without contrast, 01/12/2017: History: Abdominal pain, bladder cancer Multidetector CT imaging was performed following oral and IV administration of contrast. We were also given a history of an adrenal abnormality and therefore a few limited noncontrast scans were also obtained through the adrenal glands. There appears to be trace amount of right-sided pleural fluid. There is a moderate-sized hiatal hernia. No hepatic abnormality is seen. The gallbladder is contracted. No pancreatic abnormality is detected. The spleen is of normal size. Bilateral ureteral stents are in place in satisfactory positions. The renal pelves are mildly prominent. No renal mass is seen. The bladder kauffman are generally thickened with more prominent focal thickening laterally on the right. No adrenal abnormality is detected. There is moderate aortoiliac calcific plaquing without evidence of aneurysm. No abdominal or pelvic adenopathy is seen. There is a small amount of free fluid in the abdomen and pelvis. There is streaky increased density in the mesentery compatible with generalized congestion/edema. Numerous diverticula are present in the sigmoid colon. There is no evidence of bowel obstruction. There is mild colonic mural thickening, best seen at the mid transverse colon level. There is a mild superior endplate deformity involving the L3 vertebral body, of indeterminate age. There are tiny sclerotic foci scattered throughout the bones. Findings raise possibility of blastic osseous metastatic disease. There is bilateral spondylolysis at L5. IMPRESSION: 1. Diffuse bladder wall thickening, most prominent laterally on the right in this patient with a history of a bladder malignancy. 2. Bilateral ureteral stents are in satisfactory positions. 3. Mild dilatation of the renal pelves. 4. Generalized streaky mesenteric edema with a small volume of ascites. This could be secondary to liver disease or abdominal carcinomatosis. 5. Mild colonic mural thickening at the mid transverse level suggesting nonspecific colitis. A neoplastic etiology cannot be excluded. 6. Sigmoid diverticulosis. 7. Scattered tiny sclerotic foci in the bones raising the possibility of blastic osseous metastatic disease versus multiple bone islands. 8. Mild L3 vertebral compression deformity. 9. Moderate sized hiatal hernia PQRS Compliance Statement: One or more of the following individualized dose reduction techniques were utilized for this examination: 1. Automated exposure control 2. Adjustment of the mA and/or kV according to patient size 3. Use of iterative reconstruction technique
== END | disposition home or self-care (01) ==
LOC: NM 09:12
PROVIDERS: ATTEND Physician Assistant
DX: C67.9 Malignant neoplasm of bladder, unspecified (principal); R10.84 Generalized abdominal pain; M54.89 Other dorsalgia; E25.9 Adrenogenital disorder, unspecified; K57.32 Diverticulitis of large intestine without perforation or abscess without bleeding; K44.9 Diaphragmatic hernia without obstruction or gangrene
CPT/HCPCS: 74177; 78306; 96374; A9503; Q9966; Q9967